=== PATIENT | female | born 1980 | race Caucasian/White ===

== ENCOUNTER 2023-09-06 22:18 | Emergency (ER) | payer OTHER, SELFPAY ==
--- NOTE | ~2023-09-06 | XR_ITS ---
EXAMINATION: XR chest 1V portable INDICATION: Right-sided chest pain TECHNIQUE: Portable AP chest at 0503 hours COMPARISON: None available FINDINGS: The lungs are free of acute opacities. No pleural effusion or pneumothorax. The cardiomedia stinal silhouette is normal. IMPRESSION: 1. No acute cardiopulmonary abnormality. Reviewed, dictated and finalized at location F. ICAL APPLICATION SPECIALIST
[2023-09-06 22:23] VITALS: BP 173/117; PULSE 83; RESP 18; TEMP 36.7; O2SAT 99
[2023-09-07 00:52] VITALS: BP 157/103; PULSE 85; RESP 20; TEMP 37.1; O2SAT 99
[2023-09-07 02:54] VITALS: BP 157/96; PULSE 85; RESP 18; O2SAT 98
[2023-09-07 04:19] VITALS: BP 155/107; PULSE 76; O2SAT 97
--- NOTE | 2023-09-07 04:54 | ECG_ITS ---
Measurements Intervals [place] Rate: 64 P: 3 CO: 136 QRS: -2 QRSD: 94 T: 14 QT: 423 QTc: 439 Interpretive Statements SINUS RHYTHM NO PREVIOUS ECG AVAILABLE FOR COMPARISON Electronically Signed On 09-08-2023 10:18:50 CROP OR GRAIN FARMER by Akhil Mahmood M.D.
[2023-09-07] MEDS: SODIUM CHLORIDE 0.9% IV 1,000 ML 999 ML IV CONT (05:26)
[2023-09-07] MEDS: KETOROLAC 15 MG/ML VIAL (*BKC) IV PUSH (05:26)
[2023-09-07 05:37] LABS: Basophils Absolute Auto 0.1 K/mm3 (0.0-0.1); Basophils Percent Auto 0.7 % (0.2-1.2); Eosinophils Absolute Auto 0.3 K/mm3 (0-0.3); Eosinophils Percent Auto 3.4 % (0-4.4); Hematocrit 41.4 % (37.0-47.0); Hemoglobin 14.4 g/dL (12.0-15.0); Immature Granulocyte Absolute 0.04 K/mm3 (0.00-0.031); Immature Granulocyte Percent A 0.4 % (0-0.5); Lymphocytes Absolute Auto 1.67 K/mm3 (0.9-3.2); Lymphocytes Percent Auto 17.1 % (18.3-44.2); Mean Corpuscular HGB Conc 34.8 g/dl (32-36); Mean Corpuscular Hemoglobin 31.2 pg (26-34); Mean Corpuscular Volume 89.6 fl (80-100); Mean Platelet Volume 11.5 fl (7.4-10.4); Monocytes Absolute Auto 0.7 K/mm3 (0.1-0.6); Monocytes Percent Auto 7.4 % (2.6-8.5); Neutrophils Absolute Auto 6.9 K/mm3 (1.3-6.7); Platelet Count Result 184 k/mm3 (150-375); Red Blood Count 4.62 M/mm3 (4.2-5.4); Red Cell Distribution Width 12.7 % (11.5-14.5); White Blood Count 9.8 K/mm3 (4.5-10.0)
[2023-09-07 05:39] LABS: Appearance Urine Clear (Clear); Bilirubin Urine Negative (Negative); Blood Urine Negative (Negative); Color Urine Yellow (Yellow); Glucose Urine UA Negative (Negative); Ketones Urine Negative (Negative); Leukocyte Esterase Ur Negative LEU/UL (Negative); Nitrate Urine Negative (Negative); Protein Urine Negative (Negative); Specific Grav Ur 1.004 (1.001-1.035); Urobilinogen Urine 0.2 mg/dL (<2.0)
[2023-09-07 05:48] LABS: Glucose Point of Care 117 mg/dl (65-105)
[2023-09-07 05:54] LABS: Alanine Aminotransferase 44 U/L (6-35); Albumin Level 4.4 g/dL (3.5-5.1); Alkaline Phosphatase 107 U/L (38-126); Anion Gap 11 mmol/L (8-16); Aspartate Amino Transferase 57 U/L (14-36); Bilirubin,Total 1.1 mg/dL (0.2-1.3); Blood Urea Nitrogen 7 mg/dL (7-17); Calcium 9.2 mg/dL (8.4-10.2); Carbon Dioxide 20 mmol/L (22-30); Chloride 105 mmol/L (98-107); Estimated CRCL calculation 165 ml/min; Estimated Glomerular Filt Rate > 60; Glucose 117 mg/dL (65-110); Lipase 45 U/L (23-300); Sodium 136 mmol/L (137-145)
[2023-09-07 06:17] LABS: Add Urine Microscopic? NO
--- NOTE | 2023-09-07 07:04 | ED.GENADULT ---
HPI - General Adult General Chief complaint: Abdominal Pain Stated complaint: ab pain Time Seen by Provider: 09/07/23 04:08 History of Present Illness HPI narrative: This is a 43-year-old female presenting ED with chief complaint of abdominal pain. Patient says she has been having a sharp right upper quadrant abdominal pain that is intermittent for the last 2 weeks. She has been seen multiple times at [facility] and been told she has gallstones and then given Pepcid and Reglan. The patient does not understand why she is still in pain. She denies fever chills nausea vomiting diarrhea. Related Data Allergies Allergy/AdvReac Type Severity Reaction Status Date / Time No Known Allergies Allergy Verified 09/07/23 02:56 Exam Narrative: APPEARANCE: No apparent distress. Head: atraumatic. EYES: EOMI, NOSE: Atraumatic NECK: Trachea midline RESPIRATORY: No increased rate of breathing CARDIOVASCULAR: RRR, ABDOMINAL: Non-distended, soft nontender no guarding or rebound MUSCULOSKELETAl: No obvious deformities NEURO: Alert. Moving 4/4 extremities SKIN:: Warm, dry. Normal color PSYCHIATRIC: Normal affect Point care right upper quadrant ultrasound revealed negative sonographic Munoz's, depressed gallbladder with multiple gallstones in it. Course Vital Signs Vital signs: Vital Signs Temperature 98.0 F 09/06/23 22:23 Pulse Rate 83 09/06/23 22:23 Respiratory Rate 18 09/06/23 22:23 Blood Pressure 173/117 H 09/06/23 22:23 Pulse Oximetry 99 09/06/23 22:23 Temperature 98.8 F 09/07/23 00:52 Pulse Rate 76 09/07/23 04:19 Respiratory Rate 18 09/07/23 02:54 Blood Pressure 155/107 H 09/07/23 04:19 Pulse Oximetry 97 09/07/23 04:19 Medical Decision Making MDM Narrative Medical decision making narrative: -Course: 43-year-old female presenting with right upper quadrant pain. History and physical were most consistent with biliary colic. Right upper quadrant ultrasound showed multiple gallstones but no evidence of acute cholecystitis. Biliary colic was discussed with the patient at length and all questions were answered. She will be discharged with surgery follow-up. -DDX includes but is not limited to: Gastritis, pancreatitis, gallbladder disease -Social determinants of health: Patient works as a pollution control engineer, lives with her and children -Independent interpretation of studies: CBC normal. Metabolic panel showed very mild elevations in AST ALT. Bili normal. Urine not indicative of infection. Urine negative. Chest x-ray unremarkable. Independent EKG interpretation: Rhythm [sinus], Rate [64], [place] -[normal], [place] -[normal], QRS [narrow], QTC [normal], T waves -[negative for concerning inversions], ST Segments - [Negative for concerning elevations] Final interpretations: [Normal Sinus Rhythm] -Interventions: Toradol, 1 L normal saline -Shared decision making / Disposition: Discharged -RX Motrin, Tylenol, Zofran, oxycodone Vital Signs Vital Signs: Vital Signs Temperature 98.0 F 09/06/23 22:23 Pulse Rate 83 09/06/23 22:23 Respiratory Rate 18 09/06/23 22:23 Blood Pressure 173/117 H 09/06/23 22:23 Pulse Oximetry 99 09/06/23 22:23 Temperature 98.8 F 09/07/23 00:52 Pulse Rate 76 09/07/23 04:19 Respiratory Rate 18 09/07/23 02:54 Blood Pressure 155/107 H 09/07/23 04:19 Pulse Oximetry 97 09/07/23 04:19 Lab Data 09/07/23 05:29 09/07/23 05:29 Labs: Lab Results 09/07/23 09/07/23 Range/Units 05:29 05:46 WBC 9.8 (4.5-10.0) K/mm3 RBC 4.62 (4.2-5.4) M/mm3 Hgb 14.4 (12.0-15.0) g/dL Hct 41.4 (37.0-47.0) % MCV 89.6 (80-100) fl MCH 31.2 (26-34) pg MCHC 34.8 (32-36) g/dl RDW 12.7 (11.5-14.5) % Plt Count 184 (150-375) k/mm3 MPV 11.5 H (7.4-10.4) fl Immature Gran % (Auto) 0.4 (0-0.5) % Neut % (Auto) 71.0 (45.5-73.1) % Lymph % (Auto) 17.1 L (18.3-44.2) % M
[2023-09-07 07:37] VITALS: BP 133/83; PULSE 74; RESP 18; O2SAT 97
== END 2023-09-07 07:38 | disposition home or self-care (01) ==
PROVIDERS: Emergency Provider Emergency Medicine; PCP Internal Medicine
DX: K80.50 Calculus of bile duct without cholangitis or cholecystitis without obstruction (principal)
CPT/HCPCS: 36415; 71045; 80053; 81003; 81025; 82948; 83690; 85025; 93005; 96361; 96374; 99284; J1885; J7030

== ENCOUNTER 2023-09-18 07:00 | Outpatient (NON) | payer OTHER, SELFPAY | END 2023-09-18 07:01 | disposition home or self-care (01) | PROVIDERS: PCP Internal Medicine; Visit Provider Surgery | DX: K80.10 Calculus of gallbladder with chronic cholecystitis without obstruction (principal) | CPT/HCPCS: 88304 ==

== ENCOUNTER 2023-09-18 07:31 | Day surgery (SDC) | payer OTHER, SELFPAY ==
[2023-09-13 11:36] VITALS: BMI 28.8
[2023-09-18] VITALS (9 sets, daily range): BP systolic 112–163; BP diastolic 67–94; PULSE 66–93; RESP 12–20; TEMP 36.6; O2SAT 98–100
--- NOTE | 2023-09-18 07:31 | P.PNAN_ITS ---
Anes - Initial Pre Proc Eval Procedure: Operation Date: 09/18/23 09:30 Proposed Procedures p Laparoscopic Cholecystectomy - Mele Higginbotham DO Date/Time: 09/18/23 07:31 Surgeon: Mele Higginbotham DO Pre Op Diagnosis: Symptomatic Cholelithiasis Patient Data Age: 43 Gender: F Height: 1.7 m Weight: 83.641 kg Allergies Allergy/AdvReac Type Severity Reaction Status Date / Time No Known Allergies Allergy Verified 09/18/23 08:17 Home Medications Medication Instructions Recorded Confirmed Type acetaminophen 500 mg tablet 1,000 mg PO TID PRN philly 7 days #42 09/07/23 09/13/23 Rx tabs ibuprofen 800 mg tablet 800 mg PO TID PRN pain 7 days #21 09/07/23 09/18/23 Rx tabs oxycodone 5 mg tablet 5 mg PO Q4H PRN pain #14 tabs 09/07/23 09/13/23 Rx biotin 1 cap PO DIRECTED 09/13/23 09/18/23 History famotidine 20 mg tablet 20 mg PO BID 09/13/23 09/18/23 History lorazepam 0.5 mg tablet 0.5 mg PO DAILY PRN Anxiety 09/13/23 09/18/23 History ondansetron 4 mg disintegrating 4 mg PO TID PRN Nausea 09/13/23 09/18/23 History tablet sertraline 150 mg capsule 150 mg PO DAILY 09/13/23 09/18/23 History Patient hx anesthesia problems: none Family hx anesthesia problems: none Results Review: All pre-operative results and documents have been reviewed as part of the pre- operative evaluation. [facility] Past Medical History Medical History (Updated 09/13/23 @ 11:33 by Mckenzie Serrano) Anxiety Surgical History Surgical History (Updated 09/13/23 @ 10:55 by Erika Cutler CMA) Previous section Family History Family History (Updated 09/13/23 @ 10:55 by Erika Cutler CMA) Father Cerebrovascular accident Hypertension Heart disease Mother Breast cancer Social History Social History (Updated 09/13/23 @ 10:56 by Erika Cutler CMA) Smoking status: Never smoker Alcohol use details: Pt states drinks two days a week at about 8 drinks per day Living arrangements: with family Spiritual care concerns: No Anes - Eval Final PreProcedure Day of Procedure 09/18/23 07:31 Patient weight: overweight Heart: regular rate and rhythm Lungs: clear to auscultation Airway: Mallampati scale class II Neurological: alert and oriented Last oral intake: >/= 8 hours ASA classification: II Emergent: no Anesthetic plan: proceed Anesthesia type and monitoring: general ETT and standard monitoring Results Review: All pre-operative results and documents have been reviewed as part of the pre- operative evaluation. Informed Consent: The patient's anesthetic plan and its attendant risks and benefits were discussed with the patient/family/POA. Questions were solicited and answers provided to the satisfaction of the patient/family/POA.
[2023-09-18] MEDS: ACETAMINOPHEN 500 MG TABLET 1000 MG PO (08:15)
[2023-09-18] MEDS: LACTATED RINGERS 1,000 ML 30 ML IV CONT ×2 (08:51→10:20)
--- NOTE | 2023-09-18 09:15 | WPDHPUPDATE1 ---
History and Physical Update Update Date/Time: 09/18/23 09:15 History and Physical has been reviewed, including an updated exam of the patient. There are NO changes in the patient's condition. Risks, benefits, and alternatives have been discussed and questions answered. Patient agrees to proceed with procedure.
[2023-09-18] MEDS: ceFAZolin SODIUM 2 GM/20 ML SW SYRINGE IV PUSH (09:28)
[2023-09-18] MEDS: BUPIVACAINE/EPINEPHRINE 0.5% 50 ML VIAL 30 ML INFILTRATE (10:27)
--- NOTE | 2023-09-18 10:32 | W.PM.PROC2 ---
Procedure Note - Detailed Date of Procedure 09/18/23 Pre-op Diagnosis Symptomatic Cholelithiasis Post-op Diagnosis Other ( Chronic calculous cholecystitis, liver cirrhosis) Procedure Performed Laparoscopic Cholecystectomy Surgeon Mele Higginbotham DO Anesthesia General and Local (0.5% bupivacaine) Indications This is a 43-year-old woman who presented with upper abdominal pain that started within the last 3 or 4 weeks. She had been to the emergency department multiple times for this. She previously had gone to [facility] and then also to [place] [facility] on 09/07/2023. CT of her abdomen and pelvis at [facility] showed evidence of cholelithiasis and splenomegaly. She has been staying on a low-fat diet and avoiding drinking alcohol and her symptoms have somewhat improved. Discussions were made with the patient about treatment options and decision was made to proceed with laparoscopic cholecystectomy. Findings laparoscopic cholecystectomy was performed. The liver appeared to have a nodular surface consistent with signs of cirrhosis. The gallbladder had chronic gallbladder wall thickening and many gallstones within the body and neck of the gallbladder. There were also a few pericholecystic adhesions. The cystic duct appeared normal in size. No other significant abnormalities were noted. The gallbladder was removed and sent to the lab for pathology. Description of Procedure Procedure as well as risks, benefits, and alternatives were discussed with patient. Written consent was obtained and placed in chart prior to procedure. The patient was brought back to surgical suite. Patient was placed in supine position on operating table. Time-out was done to confirm patient and procedure. Patient was then intubated by the anesthesia department. Abdomen was prepped and draped in sterile fashion using chlorhexidine prep. 0.5% bupivacaine with epinephrine was infiltrated at each site of incision. A 5 millimeter incision was made near the umbilicus, and a 5 millimeter Optiview trocar was advanced through the abdominal layers under direct visualization. Once inside the abdominal cavity, carbon dioxide was insufflated to create a pneumoperitoneum. The camera was inserted and the abdomen was inspected. No immediate abnormalities were identified. The patient was placed in reverse Trendelenburg position and rotated slightly to the left. An 11 millimeter incision was made in the subxiphoid region, and an 11 millimeter trocar was inserted under direct visualization. Two 5 millimeter incisions were made in the right upper quadrant, and two 5 millimeter trocars were inserted under direct visualization. The gallbladder was identified and grasped at the fundus and retracted superiorly. It was then grasped at the infundibulum retracted laterally. Careful dissection around the neck of the gallbladder was performed using blunt dissection with a [place] grasper and hook electrocautery. The cystic duct was identified, and a window was created behind it. The cystic artery was also identified and a window was created behind it. The critical view of safety was identified, visualizing the cystic duct running directly into the neck of the gallbladder, and the cystic artery running directly into the wall of the gallbladder. A 5 millimeter clip door tender was then used to place 2 clips proximally and 1 clip distally on both the cystic duct and cystic artery. They were then both transected using endoscopic scissors. Once safely away from the yovana hepatitis, the gallbladder was dissected free from the liver bed using hook electrocautery. Hemostasis was achieved along the way. The gallbladder was removed completely and then removed through the subxiphoid port. The liver bed was then inspected. Hemostasis appeared adequate, and our clips appeared secure. The area was gently irrigated with sterile saline. No other abnormalities we
[2023-09-18] MEDS: KETOROLAC 30 MG/ML VIAL (*BKC) 15 MG IV PUSH (10:39)
--- NOTE | 2023-09-18 11:34 | WPDANESPN ---
Anes - Prog Note Post-Op Date/Time: 09/18/23 11:34 Cardiovascular status: normal Respiratory status: normal Airway patency: baseline Mental status: baseline Post-Op hydration status: normal Vital Signs: Last Vital Signs Temp 36.6 C 09/18/23 10:40 Pulse 87 09/18/23 11:20 Resp 16 09/18/23 11:20 BP 118/71 09/18/23 11:20 Pulse Ox 99 09/18/23 11:20 O2 Del Method Room Air 09/18/23 11:20 O2 Flow Rate 8 09/18/23 10:50 Pain Score (VAS): 1 I/O: Intake & Output 09/17/23 09/18/23 09/18/23 23:59 07:59 15:59 Intake Total 1400 Output Total 800 Balance 600 Post-procedural complaints: none Patient Feedback: Patient satisfied with anesthetic care. Other Findings: Patient vital signs back to baseline. Patient denies nausea and vomiting. Patient's pain under control. Patient OK for discharge.
[2023-09-18] MEDS: ONDANSETRON INJ 4 MG/2 ML VIAL IV PUSH (11:36)
--- NOTE | 2023-09-18 11:37 | SUR.PHASEII ---
PT C/O MILD NAUSEA. DRINKING WATER. ZOFRAN GIVEN IV
== END 2023-09-18 12:20 | disposition home or self-care (01) ==
PROVIDERS: PCP Internal Medicine; Visit Provider Surgery
PROC: 0FT44ZZ Resection of Gallbladder, Percutaneous Endoscopic Approach (ICD-10-PCS; CPT 47562; principal; 2023-09-18 09:30)
DX: K80.20 Calculus of gallbladder without cholecystitis without obstruction (principal)
CPT/HCPCS: 47562

== ENCOUNTER 2023-09-28 12:42 | Observation (INO) | payer OTHER, SELFPAY ==
[2023-09-28] VITALS (18 sets, daily range): BP systolic 109–127; BP diastolic 71–82; PULSE 59–72; RESP 11–19; TEMP 36.3; O2SAT 94–99; BMI 27.2
--- NOTE | ~2023-09-28 | NM_ITS ---
EXAMINATION: NM hepatobiliary wo pharm DATE: 09/28/2023 22:56 INDICATION: Abdominal pain after cholecystectomy. COMPARISON: CT 09/28/2023 TECHNIQUE: 5.3 mCi Tc-99m mebrofenin (Choletec) was administered intravenously. Scintigraphic images of the abdomen were obtained for one hour. FINDINGS: There is normal clearance of radiotracer from the blood pool. There is homogeneous tracer u ptake by the liver. Activity progresses to the bowel. IMPRESSION: 1. No bile leak. Reviewed, dictated and finalized at location A. R HEAD STRINGER IMPRESSION: 1. No bile leak.
--- NOTE | ~2023-09-28 | CT_ITS ---
EXAMINATION: CTA chest PE abdomen pel DATE: 09/28/2023 17:07 INDICATION: RLQ pain, R chest pain, s/p cholecystectomy 09/08/2023. TECHNIQUE: Computed tomography angiography (CTA) of the chest was performed with 100 mL Omnipaque-350 intravenous contrast timed to evaluate the pulmonary arteries, followed by portal venous phase imagi ng of the abdomen and pelvis. Coronal maximum intensity projection 3D-reconstructions were created by the technologist. The dose-length product (DLP) was 1038.96 mGy-cm. Automated exposure control and i terative reconstruction technique were employed. COMPARISON: None. FINDINGS: CHEST: Lung parenchyma and airways: Dependent atelectasis. Pleura: Unremarkable. Thoracic inlet, axillae and chest wall: Unremarkable. Thoracic aorta: Normal. Mediastinum: Normal. Heart and pericardium: Normal. Coronary artery calcifications: Absent. Thoracic bones: No acute osseous finding. Pulmonary arteries: Study quality: Adequate. No pulmonary emboli detected. ABDOMEN/PELVIS: Liver: Enlarged. Nodular liver border Biliary/Gallbladder: Status post recent cholecystectomy. Inflammatory change in the gallbladder fossa , extending into Quiros's pouch and the right-sided mesenteric fat. Trace fluid in the posterior pe rihepatic space/Quiros's pouch. No bile duct dilation. Pancreas: No mass or duct dilation. Spleen: Enlarged. Adrenals:No mass. Kidneys: No suspicious mass, obstructing stone, or hydronephrosis. GI tract: No small or large bowel dilation. Normal appendix. Mesentery/Peritoneum: No ascites, mass, or free air. Retroperitoneum: No mass. Atherosclerotic abdominal aortic and/or arterial calcifications. Pelvis: Pelvic organs are within normal limits. Soft Tissues: Anterior soft tissue changes from laparoscopic ports. Abdominopelvic bones: No acute osseous finding. IMPRESSION: Changes of recent cholecystectomy (reportedly 09/08/2023), with persistent inflammatory stranding in the gallbladder fossa, perihepatic space/Morison's pouch, and the right abdominal mesentery, to a gre ater degree than expected. Trace perihepatic/Quiros's pouch fluid, bile leak is not excluded. Hepatosplenomegaly. Cirrhosis. Reviewed, dictated and finalized at location K. LER OPERATOR IMPRESSION: Changes of recent cholecystectomy (reportedly 09/08/2023), with persistent infl ammatory stranding in the gallbladder fossa, perihepatic space/Morison's pouch, and the right abdominal mesentery, to a greater degree than expected. Trace perihepatic/Quiros's pouch fluid, bile leak is not excluded. Hepatosplenomegaly. Cirrhosis.
--- NOTE | 2023-09-28 15:49 | ED.ABDPAIN ---
HPI - Abdominal Pain General Chief Complaint: Abdominal Pain Stated Complaint: abd pain (GB removal 09/08), pain w/ inspiration Time Seen by Provider: 09/28/23 15:19 History of Present Illness HPI narrative: Patient is a 43-year-old female presenting with right lower quadrant pain. States that she had her gallbladder removed 10 days ago. States that she was doing well until yesterday when she developed right-sided abdominal pain. States that sometimes shoots into her right chest and right shoulder. It is worse with taking a big breath. No shortness of breath or lightheadedness. No nausea or vomiting. No diarrhea. She has been having bowel movements. No dysuria or hematuria. No fevers or chills. Related Data Home Medications Medication Instructions Recorded Confirmed lorazepam 0.5 mg tablet 0.5 mg PO PRN PRN Anxiety 09/13/23 09/29/23 ondansetron 4 mg disintegrating 4 mg PO PRN PRN Nausea 09/13/23 09/29/23 tablet sertraline 150 mg capsule 150 mg PO HS 09/13/23 09/29/23 Allergies Allergy/AdvReac Type Severity Reaction Status Date / Time No Known Allergies Allergy Verified 09/18/23 08:17 Review of Systems Review of Systems: All systems reviewed & are unremarkable except as noted in HPI and below PMFSH Past Medical History Medical History Anxiety Surgical History Surgical History Previous section Family History Family History Father Cerebrovascular accident Hypertension Heart disease Mother Breast cancer Social History Social History Smoking status: Never smoker Alcohol intake: current Drinks per week: 16 Alcohol use details: Pt states drinks two days a week at about 8 drinks per day Substance use: never Do You Feel Safe in your Home?: Yes Lack of Transportation: No Lack of Food: Never True Current Housing: I Have Housing Concerned About Future Housing: No Difficulty Paying Gas/Electric Bills: No Difficulty Paying for Meds: No Currently Unemployed: No Education: High School Diploma/GED Difficulty w/ Childcare or Family Care: No Living arrangements: with family Spiritual care concerns: No Exam Narrative: GENERAL: Well-appearing, well-nourished, and in no acute distress. HEAD: Normocephalic, atraumatic. EYES: PERRLA and EOMI. ENT: Grossly unremarkable NECK: Supple. CHEST: Clear to auscultation. No respiratory distress. HEART: Regular rate and rhythm ABDOMEN: Soft, + right lower quadrant tenderness without guarding or rebound, well-healing laparoscopic incisions noted EXTREMITIES: Normal range of motion. No edema. SKIN: Warm, dry, no rash. NEURO: No focal deficits. Alert and oriented x3. PSYCH: Normal mood and affect. Course Vital Signs Vital signs: Vital Signs Pulse Rate 66 09/28/23 16:01 Respiratory Rate 18 09/28/23 16:01 Blood Pressure 110/73 09/28/23 16:01 Pulse Oximetry 97 09/28/23 16:01 Temperature 97.6 F 09/29/23 14:00 Pulse Rate 71 09/29/23 14:00 Respiratory Rate 16 09/29/23 14:00 Blood Pressure 110/72 09/29/23 14:00 Pulse Oximetry 97 09/29/23 14:00 Oxygen Delivery Room Air 09/29/23 09:15 MDM - Abdominal Pain MDM Narrative Medical decision making narrative: patient is a 43-year-old female presenting with right lower quadrant pain and right-sided chest pain. Vitals are stable. Exam remarkable for the above. Blood work without significant abnormalities. UA is unremarkable. CT with fluid in Quiros's pouch, cannot exclude a bile leak. Patient continues to have pain in her right upper quadrant. I spoke with surgery who recommends bring her in for observation for HIDA scan to fully evaluate for bile leak. Patient is agreeable with this plan. Differential Diag
--- NOTE | 2023-09-28 15:51 | ECG_ITS ---
Measurements Intervals [place] Rate: 60 P: 24 TN: 157 QRS: 35 QRSD: 101 T: 32 QT: 427 QTc: 427 Interpretive Statements SINUS RHYTHM COMPARED TO ECG 09/07/2023 05:49:54 NO SIGNIFICANT CHANGES Electronically Signed On 09-29-2023 14:45:46 AUTO REPAIR TECHNICIAN by Mireille Contreras M.D.
[2023-09-28 15:59] LABS: Basophils Absolute Auto 0.1 K/mm3 (0.0-0.1); Basophils Percent Auto 0.6 % (0.2-1.2); Eosinophils Absolute Auto 0.3 K/mm3 (0-0.3); Eosinophils Percent Auto 2.8 % (0-4.4); Hematocrit 40.8 % (37.0-47.0); Hemoglobin 13.8 g/dL (12.0-15.0); Immature Granulocyte Absolute 0.02 K/mm3 (0.00-0.031); Immature Granulocyte Percent A 0.2 % (0-0.5); Lymphocytes Percent Auto 14.6 % (18.3-44.2); Mean Corpuscular HGB Conc 33.8 g/dl (32-36); Mean Corpuscular Hemoglobin 30.7 pg (26-34); Mean Corpuscular Volume 90.9 fl (80-100); Mean Platelet Volume 11.4 fl (7.4-10.4); Monocytes Absolute Auto 0.8 K/mm3 (0.1-0.6); Monocytes Percent Auto 8.2 % (2.6-8.5); Neutrophils Absolute Auto 7.1 K/mm3 (1.3-6.7); Neutrophils Percent Auto 73.6 % (45.5-73.1); Platelet Count Result 198 k/mm3 (150-375); Red Blood Count 4.49 M/mm3 (4.2-5.4); Red Cell Distribution Width 12.3 % (11.5-14.5); White Blood Count 9.6 K/mm3 (4.5-10.0)
[2023-09-28 16:09] LABS: Alanine Aminotransferase 25 U/L (6-35); Albumin Level 4.2 g/dL (3.5-5.1); Alkaline Phosphatase 101 U/L (38-126); Anion Gap 9 mmol/L (8-16); Aspartate Amino Transferase 41 U/L (14-36); Bilirubin,Total 1.1 mg/dL (0.2-1.3); Blood Urea Nitrogen 6 mg/dL (7-17); Calcium 9.2 mg/dL (8.4-10.2); Carbon Dioxide 22 mmol/L (22-30); Chloride 104 mmol/L (98-107); Estimated CRCL calculation 146 ml/min; Estimated Glomerular Filt Rate > 60; Glucose 104 mg/dL (65-110); Lipase 32 U/L (23-300); Potassium 3.9 mmol/L (3.4-5.0); Sodium 135 mmol/L (137-145)
[2023-09-28] MEDS: HYDROmorphone HCL INJ (*CRX) 1 MG/ML SYR 0.5 MG IV PUSH (16:25)
[2023-09-28] MEDS: SODIUM CHLORIDE 0.9% IV 1,000 ML 999 ML IV CONT (16:25)
[2023-09-28 17:42] LABS: Appearance Urine Clear (Clear); Bilirubin Urine Negative (Negative); Blood Urine Negative (Negative); Color Urine Yellow (Yellow); Glucose Urine UA Negative (Negative); Ketones Urine Negative (Negative); Leukocyte Esterase Ur Negative LEU/UL (Negative); Nitrate Urine Negative (Negative); Protein Urine Negative (Negative)
[2023-09-28 17:43] LABS: Specific Grav Ur 1.052 (1.001-1.035)
[2023-09-28 17:44] LABS: Add Urine Microscopic? NO
[2023-09-28] MEDS: ONDANSETRON INJ 4 MG/2 ML VIAL (17:55)
--- NOTE | 2023-09-28 19:23 | PC.NURSE ---
Assumed care of pt from NICOLE Fuentes at this time.
--- NOTE | 2023-09-28 21:47 | PC.NURSE ---
Nuc med here to do scan on pt. Pt to go upstairs after scan. Report already called to [facility].
--- NOTE | 2023-09-28 23:15 | ADMGEN ---
This patient, Joan Guerrero, was admitted to [facility] Room 302-01. Patient/family oriented to hospital policies and general routines including ID bracelet, bed and alarms, visiting hours, pain management, procedures, bathroom and other care routines, personal items, smoking policy, room service/diet, and visiting hours. Information on how to activate the Rapid Response Team has been discussed. Patient/Family are encouraged to report perceived risks to care and to ask questions if they do not understand what they are told or what they should do.
[2023-09-28] MEDS: KETOROLAC 30 MG/ML VIAL (*BKC) IV PUSH (23:49)
[2023-09-28] MEDS: ONDANSETRON INJ 4 MG/2 ML VIAL IV PUSH (23:50)
[2023-09-29 06:00] VITALS: BP 124/78; PULSE 61; RESP 16; TEMP 36.3; O2SAT 100
[2023-09-29] MEDS: KETOROLAC 30 MG/ML VIAL (*BKC) IV PUSH (09:18)
[2023-09-29] MEDS: ONDANSETRON INJ 4 MG/2 ML VIAL IV PUSH (09:23)
--- NOTE | 2023-09-29 10:08 | PM.IMHP ---
H&P: HPI History of Present Illness Date/Time: 09/29/23 10:08 Chief Complaint: Right upper quadrant abdominal pain Narrative: The patient is a 43-year-old female status post laparoscopic cholecystectomy on 09/18 for symptomatic cholelithiasis presenting to the emergency department complaining of severe right upper quadrant abdominal pain with radiation to her shoulder. The patient reports she initially did very well after surgery, however started with the pain yesterday. The patient reports that the pain is worse when trying to take a deep breath. The patient denies any other associated symptoms. Review of Systems Review of Systems: All systems reviewed & are unremarkable except as noted in HPI and below PMFSH Past Medical History Medical History Anxiety Surgical History Surgical History Previous section Family History Family History Father Cerebrovascular accident Hypertension Heart disease Mother Breast cancer Social History Social History Smoking status: Never smoker Alcohol intake: current Drinks per week: 16 Alcohol use details: Pt states drinks two days a week at about 8 drinks per day Substance use: never Do You Feel Safe in your Home?: Yes Lack of Transportation: No Lack of Food: Never True Current Housing: I Have Housing Concerned About Future Housing: No Difficulty Paying Gas/Electric Bills: No Difficulty Paying for Meds: No Currently Unemployed: No Education: High School Diploma/GED Difficulty w/ Childcare or Family Care: No Living arrangements: with family Spiritual care concerns: No Meds Home Medications and Allergies Home Medications Medication Instructions Recorded Confirmed Type acetaminophen 500 mg tablet 1,000 mg PO TID PRN philly 7 days #42 09/07/23 09/29/23 Rx tabs ibuprofen 800 mg tablet 800 mg PO TID PRN pain 7 days #21 09/07/23 09/28/23 Rx tabs lorazepam 0.5 mg tablet 0.5 mg PO PRN PRN Anxiety 09/13/23 09/29/23 History ondansetron 4 mg disintegrating 4 mg PO PRN PRN Nausea 09/13/23 09/29/23 History tablet sertraline 150 mg capsule 150 mg PO HS 09/13/23 09/29/23 History hydrocodone 5 mg-acetaminophen 325 1 tablet PO Q4H PRN pain #10 tabs 09/18/23 09/28/23 Rx mg tablet Allergies Allergy/AdvReac Type Severity Reaction Status Date / Time No Known Allergies Allergy Verified 09/18/23 08:17 Vital Signs Vital Signs - 24 hr 09/28/23 16:01 09/28/23 16:28 09/28/23 16:30 Temperature Pulse Rate 66 69 72 Respiratory Rate 18 18 16 Blood Pressure 110/73 121/72 Pulse Oximetry 97 98 Oxygen Delivery 09/28/23 16:31 09/28/23 17:07 09/28/23 17:15 Temperature Pulse Rate 64 71 64 Respiratory Rate 15 11 L 16 Blood Pressure 109/71 Pulse Oximetry 97 98 94 Oxygen Delivery 09/28/23 17:16 09/28/23 17:30 09/28/23 17:31 Temperature Pulse Rate 65 62 63 Respiratory Rate 14 17 16 Blood Pressure 116/72 120/75 Pulse Oximetry 94 95 94 Oxygen Delivery 09/28/23 17:45 09/28/23 17:46 09/28/23 18:01 Temperature Pulse Rate 62 62 65 Respiratory Rate 17 16 17 Blood Pressure 111/78 120/75 Pulse Oximetry 96 96 96 Oxygen Delivery 09/28/23 18:16 09/28/23 19:16 09/28/23 19:31 Temperature Pulse Rate 60 62 62 Respiratory Rate 16 17 19 Blood Pressure 116/77 126/78 111/82 Pulse Oximetry 98 97 97 Oxygen Delivery 09/28/23 19:46 09/28/23 20:01 09/28/23 23:15 Temperature 36.3 C L Pulse Rate 59 L 59 L 64 Respiratory Rate 16 17 16 Blood Pressure 116/80 124/82 127/77 Pulse Oximetry 97 98 99 Oxygen Delivery 09/29/23 03:36 09/29/23 06:00 Temperature 36.3 C L Pulse Rate 61 Respiratory Rate 16 Blood Pressure 124/78 Pulse Oximetry 100 Oxygen Delivery Room Air
[2023-09-29] MEDS: KETOROLAC 30 MG/ML VIAL (*BKC) IM ×2 (13:11→16:53)
[2023-09-29 14:00] VITALS: BP 110/72; PULSE 71; RESP 16; TEMP 36.4; O2SAT 97
--- NOTE | 2023-09-29 18:27 | PC.NURSE ---
Erika Tello LPN provided care for this patient on 09/29/23. I have reviewed her assessment and agree with her charting.
--- NOTE | 2023-10-02 10:04 | PM.DS ---
DS: Admitting Diagnosis Discharge Date 09/29/23 Admitting Diagnosis Right upper quadrant abdominal pain DS: Discharge Diagnosis Discharge Diagnosis (1) Right upper quadrant abdominal pain: Code(s): R10.11 - Right upper quadrant pain Status: Acute Assessment and Plan: much improved with Toradol, patient tolerating low-fat diet, will discharge home with p.o. Ultram, follow-up with Dr. Higginbotham next week DS: Summary Hospital Course Reason for hospitalization: right upper quadrant abdominal pain Hospital Course: The patient is a 43-year-old female presenting to the emergency complaining severe right upper quadrant abdominal pain. Patient is status post laparoscopic cholecystectomy on 09/18 for symptomatic cholelithiasis, please see full operative report for details of that procedure. Workup in the emergency department, including imaging, was significant for some inflammation and fluid in the right upper quadrant. Given these findings, the patient was admitted to the surgical service for further workup and evaluation. The patient had a HIDA scan done the following morning that was negative for bile leak. The patient was started on Toradol given the significant inflammation in the right upper quadrant. She was slowly advanced on a diet which she tolerated without issue. Later that day, the patient reports that she feels much better and wants to go. She will be sent home with p.o. Ultram and follow-up with Dr. Higginbotham in 1 week. Status at Discharge Functional status at discharge: independent ambulation Overall status at discharge: patient is progressing back to baseline Time Spent with Patient Time attestation: Total time spent providing and/or coordinating discharge services: Time spent: Less than 30 minutes Exam Const: General: cooperative, comfortable and no acute distress Resp: Auscultation: clear to auscultation bilaterally Cardio: Rate: regular rate Rhythm: regular rhythm GI: Inspection: normal to inspection and non-distended GI Palp: Yes abdominal tenderness, Yes Soft to palpation, Yes Tenderness to palpation present (GI), No Guarding due to palpation present (GI) and No Rigid due to palpation Discharge Plan Discharge Attending physician on discharge: Violetta Clay Consulting providers: Mireille Contreras; Ronaldo Ni; Adan Barrett V. Discharging Clinician: Violetta Clay Anticipated Discharge Date/Time: 09/29/23 17:40 Patient Disposition: Home, Self-Care Activity: may shower and as tolerated Diet: as tolerated Patient Instructions: Antibiotic Form, Tramadol (By mouth) Stand Alone Forms: General Discharge Information Follow-up/Referrals: Mele Higginbotham DO [Physician] - 1 Week Discharge Medications: New tramadol 50 mg tablet 50 mg PO Q6H PRN (Reason: pain) Qty: 20 0RF Continued sertraline 150 mg capsule 150 mg PO HS lorazepam 0.5 mg tablet 0.5 mg PO PRN PRN (Reason: Anxiety) acetaminophen 500 mg tablet 1,000 mg PO TID PRN (Reason: [place]) 7 Days Qty: 42 0RF ondansetron 4 mg tablet,disintegrating 4 mg PO PRN PRN (Reason: Nausea) Discontinued ibuprofen 800 mg tablet 800 mg PO TID PRN (Reason: pain) 7 Days Qty: 21 0RF hydrocodone-acetaminophen 5-325 mg tablet 1 tablet PO Q4H PRN (Reason: pain) Qty: 10 0RF Date of admission: 09/28/23 19:07 Primary Care Provider: Valerie,Kris Woo Admitting Provider: Violetta Clay Attending physician on admission: Violetta Clay Condition: Stable
== END 2023-09-29 18:15 | disposition home or self-care (01) ==
LOC: ANHED 15:32 → ANH3MEDSUR 21:40
PROVIDERS: Admitting Provider Surgery; Emergency Provider Emergency Medicine; PCP Internal Medicine; Visit Provider Surgery
DX: R10.11 Right upper quadrant pain (principal); R07.9 Chest pain, unspecified; R11.0 Nausea; K74.60 Unspecified cirrhosis of liver; R16.2 Hepatomegaly with splenomegaly, not elsewhere classified; F41.9 Anxiety disorder, unspecified; F10.90 Alcohol use, unspecified, uncomplicated; Z90.49 Acquired absence of other specified parts of digestive tract; Z79.1 Long term (current) use of non-steroidal anti-inflammatories (NSAID); Z79.891 Long term (current) use of opiate analgesic; Z79.899 Other long term (current) drug therapy
CPT/HCPCS: 36415; 71275; 74177; 78226; 80053; 81003; 81025; 83690; 85025; 93005; 96361; 96374; 96375; 96376; 99285; A9537; G0378; J1170; J1885; J2405; J7030; Q9967